=== PATIENT | female | born 1990 | race Caucasian/White ===

== ENCOUNTER 2019-06-29 06:02 | Emergency (ER) | payer SELFPAY ==
[2019-06-29 06:17] LABS: URINE APPEARANCE CLOUDY; URINE BILIRUBIN NEGATIVE (NEGATIVE); URINE BLOOD NEGATIVE (NEGATIVE); URINE COLOR ORANGE; URINE GLUCOSE (UA) NEGATIVE (NEGATIVE); URINE KETONE NEGATIVE (NEGATIVE); URINE LEUKOCYTE ESTERASE SMALL (NEGATIVE); URINE NITRITE NEGATIVE (NEGATIVE); URINE PROTEIN NEGATIVE (NEGATIVE); URINE UROBILINOGEN 0.2 E.U./dL (0.20 - 1.00)
[2019-06-29 06:38] LABS: URINE RBC NONE SEEN (NONE SEEN)
[2019-06-29] MEDS ORDERED: 0.9 % SODIUM CHLORIDE 1,000 ML BAG IV ONE (06:38)
[2019-06-29 06:39] LABS: URINE BACTERIA NONE SEEN
--- NOTE | 2019-06-29 06:39 | Emergency Department Record ---
History of Present Illness - General Source: Patient Mode of Arrival: Ambulatory Limitations: No limitations - History of Present Illness Initial Comments: pt has multiple vague complaints. she has diffuse ap, dizziness, headache on the right side of her head. she states when she stands up she feels like she is going to tip over. she has nausea. she missed work yesterday and today. she has no v/d. MD Complaint: Abdominal pain, Other Onset/Timin -: Days(s) Location: LLQ, RLQ Radiation: Suprapubic Severity: Moderate Severity scale (1-10): 5 Quality: Aching Consistency: Constant Improves With: Nothing Worsens With: Other Context: Possible food poisoning, Sick contacts Associated Symptoms: Nausea - Related Data LMP (females 10-50): 1 month ago Patient : No <Kaelyn Diehl - Last Filed: 06/29/19 06:57> <Dung Pérez - Last Filed: 06/29/19 08:57> - General Chief Complaint: Abdominal Pain Stated Complaint: HEADACHE Time Seen by Provider: 06/29/19 06:25 - Related Data Previous Rx's Medication Instructions Recorded Naproxen [Naprosyn] 500 mg PO BID #14 tablet. 06/29/19 Allergies Allergy/AdvReac Type Severity Reaction Status Date / Time No Known Drug Allergies Allergy Verified 06/29/19 06:34 Travel Screening - Travel/Exposure Within Last 30 Days Have you traveled within the last 30 days?: No - Travel Symptoms Symptom Screening: Headache <Kaelyn Diehl - Last Filed: 06/29/19 06:57> Review of Systems Reviewed: No additional complaints except as noted below Constitutional: Reports: As per HPI. Denies: Chills, Fever, Malaise, Night sweats, Weakness, Weight change Eyes: Reports: As per HPI. Denies: Eye discharge, Eye pain, Photophobia, Vision change ENT: Reports: As per HPI. Denies: Congestion, Dental pain, Ear pain, Epistaxis, Hearing loss, Throat pain Respiratory: Reports: As per HPI. Denies: Cough, Dyspnea, Hemoptysis, Stridor, Wheezes Cardiovascular: Reports: As per HPI. Denies: Arrhythmia, Chest pain, Dyspnea on exertion, Edema, Murmurs, Orthopnea, Palpitations, Paroxysmal nocturnal dyspnea, Rheumatic Fever, Syncope Endocrine: Reports: As per HPI. Denies: Fatigue, Heat or cold intolerance, Polydipsia, Polyuria Gastrointestinal: Reports: As per HPI, Abdominal pain, Constipation, Nausea. Denies: Diarrhea, Hematemesis, Hematochezia, Melena, Vomiting Genitourinary: Reports: As per HPI. Denies: Abnormal menses, Discharge, Dyspareunia, Dysuria, Frequency, Hematuria, Incontinence, Retention, Urgency Musculoskeletal: Reports: As per HPI. Denies: Arthralgia, Back pain, Gout, Joint swelling, Myalgia, Neck pain Skin: Reports: As per HPI. Denies: Bruising, Change in color, Change in hair/nails, Lesions, Pruritus, Rash Neurological: Reports: As per HPI, Headache. Denies: Abnormal gait, Confusion, Numbness, Paresthesias, Seizure, Tingling, Tremors, Vertigo, Weakness Psychiatric: Reports: As per HPI. Denies: Anxiety, Auditory hallucinations, Depression, Homicidal thoughts, Suicidal thoughts, Visual hallucinations Hematological/Lymphatic: Reports: As per HPI. Denies: Anemia, Blood Clots, Easy bleeding, Easy bruising, Swollen glands <Kaelyn Diehl - Last Filed: 06/29/19 06:57> Past Medical History - SOCIAL HISTORY Smoking Status: Never smoker Alcohol Use: None Drug Use: None - RESPIRATORY Hx Respiratory Disorders: No - CARDIOVASCULAR Hx Cardio Disorders: No - NEURO Hx Neuro Disorders: No - GI Hx GI Disorders: No - Hx Genitourinary Disorders: Yes - ENDOCRINE Hx Endocrine Disorders: No - MUSCULOSKELETAL Hx Musculoskeletal Disorders: No - PSYCH Hx Psych Problems: No - HEMATOLOGY/ONCOLOGY Hx Hematology/Oncology Disorders: No <Kaelyn Diehl - Last Filed: 06/29/19 06:57> Family Medical History Any Significant Family History?: Yes Hx Cancer: Mother *Cancer Comment: breast Hx Diabetes: Grandparents <Kaelyn Diehl - Last Filed: 06/29/19 06:57> Physical Exam - General General Appearance: Alert, Oriented x3, Cooperative, No acute distress - Head Head exam: Normal inspection - Eye Eye exam: Normal appearance, PERRL, EOMI Pupils: Normal accommodation - ENT ENT exam: Normal exam, Mucous membranes moist, Normal external ear exam, Normal orophraynx Ear exam: Normal external inspection. negative: External canal tenderness Nasal Exam: Normal inspection. negative: Discharge, Sinus tenderness Mouth exam: Normal external inspection, Tongue normal Teeth exam: Normal inspection. negative: Dental caries Throat exam: Normal inspection. negative: Tonsillar erythema, Tonsillar exudate - Neck Neck exam: Normal inspection, Full ROM. negative: Tenderness - Respiratory Respiratory exam: Normal lung sounds bilaterally. negative: Respiratory distress - Cardiovascular Cardiovascular Exam: Regular rate, Normal rhythm, Normal heart sounds - GI/Abdominal GI/Abdominal exam: Soft, Normal bowel sounds, Tenderness - Rectal Rectal exam: Deferred - exam: Deferred - Extremities Extremities exam: Normal inspection, Full ROM, Normal capillary refill. negative: Tenderness - Back Back exam: Reports: Normal inspection, Full ROM. Denies: Muscle spasm, Rash noted, Tenderness - Neurological Neurological exam: Alert, CN II-XII intact, Normal gait, Oriented X3 - Psychiatric Psychiatric exam: Normal affect, Normal mood - Skin Skin exam: Dry, Intact, Normal color, Warm <Kaelyn Diehl - Last Filed: 06/29/19 06:57> Course Vital Signs 06/29/19 06:09 Temperature 98.0 F Pulse Rate 83 Respiratory 20 Rate Blood Pressure 136/72 Pulse Ox 99 - Reevaluation(s) Reevaluation #1: 06/29/19 06:57 care being assumed by dr pérez <Kaelyn Diehl L - Last Filed: 06/29/19 06:57> Vital Signs 06/29/19 06:09 Temperature 98.0 F Pulse Rate 83 Respiratory 20 Rate Blood Pressure 136/72 Pulse Ox 99 - Reevaluation(s) Reevaluation #2: The patient is being evaluated after being picked up from Dr. Diehl due to shift change. She is here due to waking up at 3 am with a Simons that has gradually worsened. It originally was on the R side of the head and now is worse on the L side of the head. She denies any visual changes, vomiting, neck pain, fever, or balance issues. She also was dizzy at work so she decided to drive to the ER. On exam the patient was reading on her phone when I entered the room. She is awake and alert and appears very comfortable and healthy. The SIMONS is 100% reproducible with palpation of the bitemporal area. The neck is very supple. On neuro exam the patient is A and O x 3, motor and sensory are 5/5 upper and lower extremities and she has a neg Rhomberg and Drift exam. The patient's gait is normal with no balance issues. At this time she appears to have a tension SIMONS. We will treat with Toradol and will have the patient F/U with her PCP. 06/29/19 07:40 Reevaluation #3: The patient is resting comfortably at this time. She is still complaining of the bitemporal SIMONS but has no vomiting, neck pain, or fever. Again the SIMONS is 100% reproducible with palpation. The patient did have lower AP earlier but that presently is gone. On exam the abdomen is very soft and nontender. I did recommend obtaining a head CT due to the persistent new SIMONS but the patient is refusing that plan. I did explain that the risks of NOT obtaining the head CT are that the patient could have a SAH, tumor or bleeding which could lead to a stroke, disability and . The patient understands and accepts the risks. She was told to return to the ER in 12 hours if not better and sooner if worse. She presently has proper decision making capacity and accepts the risk of refusing. 06/29/19 08:24 <Dung Pérez - Last Filed: 06/29/19 08:57> Medical Decision Making - Lab Data Result diagrams: 06/29/19 06:37 06/29/19 06:37 Lab Results 06/29/19 Range/Units 06:09 Urine Color Comer H Urine Appearance Cloudy Urine pH 6.0 (5.0-8.0) Ur Specific [place] 1.025 (1.002-1.030) Urine Protein Negative (NEGATIVE) Urine Glucose (UA) Negative (NEGATIVE) Urine Ketones Negative (NEGATIVE) Urine Blood Negative (NEGATIVE) Urine Nitrite Negative (NEGATIVE) Urine Bilirubin Negative (NEGATIVE) Urine Urobilinogen 0.2 (0.20 - 1.00) E.U./dL Ur Leukocyte Esterase Small H (NEGATIVE) <Kaelyn Diehl - Last Filed: 06/29/19 06:57> - Data Complexity MDM Data: Labs Ordered and/or Reviewed - Lab Data Result diagrams: 06/29/19 06:50 06/29/19 06:50 Lab Results 06/29/19 06/29/19 06/29/19 Range/Units 06:09 06:37 06:50 WBC 10.0 (4.2-12.2) K/uL RBC 4.34 (3.80-5.40) M/uL Hgb 12.7 (11.6-16.0) gm/dl Hct 38.9 (35.0-47.0) % MCV 89.6 (81-97) fl MCH 29.3 (27-33) pg MCHC 32.6 (32-36) g/dl RDW 13.2 (11.5-14.5) % Plt Count 240 (130-400) K/uL MPV 10.6 H (7.4-10.4) fl Gran % 62.7 (47-80) % Lymphocytes % 27.5 (16-45) % Monocytes % 7.3 (0-9) % Eosinophils % 2.4 (0-6) % Basophils % 0.1 (0-6) % Absolute Neutrophils 6.27 Sodium (136-145) mmol/L Potassium (3.4-4.5) mmol/L Chloride (98-107) mmol/L Carbon Dioxide (22-29) mmol/L Anion Gap (7-16) BUN (6-20) mg/dL Creatinine (0.5-0.9) mg/dL Estimated GFR mL/min Random Glucose (74-109) mg/dL Calcium (8.6-10.0) mg/dL Total Bilirubin (0.2-1.0) mg/dL AST (10.0-35.0) U/L ALT (<33) U/L Alkaline Phosphatase (35-104) U/L Total Protein (6.6-8.7) g/dL Albumin (4.0-5.0) g/dL Globulin (1.4-4.8) gm/dL Albumin/Globulin Ratio (1.1-1.8) Urine Color Comer H Yellow Urine Appearance Cloudy Clear Urine pH 6.0 5.5 (5.0-8.0) Ur Specific [place] 1.025 >= 1.030 (1.002-1.030) Urine Protein Negative Negative (NEGATIVE) Urine Glucose (UA) Negative Negative (NEGATIVE) Urine Ketones Negative Negative (NEGATIVE) Urine Blood Negative Negative (NEGATIVE) Urine Nitrite Negative Negative (NEGATIVE) Urine Bilirubin Negative Negative (NEGATIVE) Urine Urobilinogen 0.2 0.2 (0.20 - 1.00) E.U./dL Ur Leukocyte Esterase Small H Trace H (NEGATIVE) Urine RBC None seen (NONE SEEN) Urine WBC 6 - 10 (0-2/hpf) Ur Epithelial Cells 10 - 15 (FEW) Urine Bacteria None seen Urine HCG, Qual Negative (NEGATIVE) 06/29/19 Range/Units 06:50 WBC (4.2-12.2) K/uL RBC (3.80-5.40) M/uL Hgb (11.6-16.0) gm/dl Hct (35.0-47.0) % MCV (81-97) fl MCH (27-33) pg MCHC (32-36) g/dl RDW (11.5-14.5) % Plt Count (130-400) K/uL MPV (7.4-10.4) fl Gran % (47-80) % Lymphocytes % (16-45) % Monocytes % (0-9) % Eosinophils % (0-6) % Basophils % (0-6) % Absolute Neutrophils Sodium 139 (136-145) mmol/L Potassium 4.0 (3.4-4.5) mmol/L Chloride 106 (98-107) mmol/L Carbon Dioxide 24.0 (22-29) mmol/L Anion Gap 9.0 (7-16) BUN 15 (6-20) mg/dL Creatinine 0.4 L (0.5-0.9) mg/dL Estimated GFR > 60 mL/min Random Glucose 105 (74-109) mg/dL Calcium 9.0 (8.6-10.0) mg/dL Total Bilirubin 0.20 (0.2-1.0) mg/dL AST 14 (10.0-35.0) U/L ALT 14 (<33) U/L Alkaline Phosphatase 85 (35-104) U/L Total Protein 7.1 (6.6-8.7) g/dL Albumin 4.4 (4.0-5.0) g/dL Globulin 2.7 (1.4-4.8) gm/dL Albumin/Globulin Ratio 1.6 (1.1-1.8) Urine Color Urine Appearance Urine pH (5.0-8.0) Ur Specific [place] (1.002-1.030) Urine Protein (NEGATIVE) Urine Glucose (UA) (NEGATIVE) Urine Ketones (NEGATIVE) Urine Blood (NEGATIVE) Urine Nitrite (NEGATIVE) Urine Bilirubin (NEGATIVE) Urine Urobilinogen (0.20 - 1.00) E.U./dL Ur Leukocyte Esterase (NEGATIVE) Urine RBC (NONE SEEN) Urine WBC (0-2/hpf) Ur Epithelial Cells (FEW) Urine Bacteria Urine HCG, Qual (NEGATIVE) <Dung Pérez - Last Filed: 06/29/19 08:57> Disposition <Kaelyn Diehl - Last Filed: 06/29/19 06:57> Disposition: Discharge Time of Disposition: 08:28 <Dung Pérez - Last Filed: 06/29/19 08:57> Clinical Impression: Headache Qualifiers: Headache type: tension-type Headache chronicity pattern: acute headache Intractability: not intractable Qualified Code(s): G44.209 - Tension-type headache, unspecified, not intractable Disposition: Against Medical Advice Condition: (2) Stable Instructions: Tension Headache (ED) Additional Instructions: Please rest and take the Naprosyn for pain. Take today and tomorrow off work and return to the ER in 12 hours if not better and sooner for any worsening symptoms. If improved please see a family doctor for recheck. Prescriptions: Naproxen [Naprosyn] 500 mg PO BID #14 tablet.dr Forms: Patient Portal Access Quality - Blood Pressure Screening Does Patient Have Any of the Following: No Blood Pressure Classification: Pre-Hypertensive BP Reading Systolic Measurement: 136 Diastolic Measurement: 72 Screening for High Blood Pressure: < Pre-Hypertensive BP, F/U Documented > [G8950] <Kaelyn Diehl Carmen - Last Filed: 06/29/19 06:57> - Quality Measures Quality Measures: N/A - Blood Pressure Screening View Details: Yes Does Patient Have Any of the Following: No Blood Pressure Classification: Pre-Hypertensive BP Reading Systolic Measurement: 136 Diastolic Measurement: 72 Screening for High Blood Pressure: < Pre-Hypertensive BP, F/U Documented > [G8950] Pre-Hypertensive Follow-up Interventions: Referral to alternative/primary care provider. <Dung Pérez - Last Filed: 06/29/19 08:57>
[2019-06-29] MEDS ORDERED: ACETAMINOPHEN 500 MG TABLET PO ONE (06:46)
[2019-06-29 07:00] LABS: ABSOLUTE NEUTROPHIL COUNT 6.27; BASO % 0.1 % (0-6); EOS % 2.4 % (0-6); GRAN % 62.7 % (47-80); HEMATOCRIT 38.9 % (35.0-47.0); HEMOGLOBIN 12.7 gm/dl (11.6-16.0); LYMPH % 27.5 % (16-45); MEAN CELL VOLUME 89.6 fl (81-97); MEAN CORPUSCULAR HEMOGLOBIN 29.3 pg (27-33); MEAN CORPUSCULAR HGB CONC 32.6 g/dl (32-36); MEAN PLATELET VOLUME 10.6 fl (7.4-10.4); MONO % 7.3 % (0-9); PLATELET COUNT 240 K/uL (130-400); RED BLOOD COUNT 4.34 M/uL (3.80-5.40); RED CELL DISTRIBUTION WIDTH 13.2 % (11.5-14.5)
[2019-06-29 07:06] LABS: URINE APPEARANCE CLEAR; URINE BILIRUBIN NEGATIVE (NEGATIVE); URINE BLOOD NEGATIVE (NEGATIVE); URINE COLOR YELLOW; URINE GLUCOSE (UA) NEGATIVE (NEGATIVE); URINE KETONE NEGATIVE (NEGATIVE); URINE NITRITE NEGATIVE (NEGATIVE); URINE PROTEIN NEGATIVE (NEGATIVE); URINE UROBILINOGEN 0.2 E.U./dL (0.20 - 1.00)
[2019-06-29 07:12] LABS: URINE LEUKOCYTE ESTERASE TRACE (NEGATIVE)
[2019-06-29 07:13] LABS: HCG,QUALITATIVE URINE NEGATIVE (NEGATIVE)
[2019-06-29 07:13] LABS: BLOOD UREA NITROGEN 15 mg/dL (6-20); CREATININE 0.4 mg/dL (0.5-0.9); EST GLOMERULAR FILTRATION RATE > 60 mL/min
[2019-06-29 07:14] LABS: TOTAL PROTEIN 7.1 g/dL (6.6-8.7)
[2019-06-29 07:16] LABS: GLUCOSE,RANDOM 105 mg/dL (74-109)
[2019-06-29 07:18] LABS: ALB/GLOB RATIO 1.6 (1.1-1.8); ALBUMIN 4.4 g/dL (4.0-5.0); ALT/SGPT 14 U/L (<33); AST/SGOT 14 U/L (10.0-35.0)
[2019-06-29 07:19] LABS: ALKALINE PHOSPHATASE 85 U/L (35-104)
[2019-06-29] MEDS ORDERED: KETOROLAC 30 MG/ML VIAL IVP ONE (07:38)
== END 2019-06-29 08:35 | disposition left against medical advice (07) ==
LOC: ER 06:02
DX: G44.209 Tension-type headache, unspecified, not intractable (principal); R10.84 Generalized abdominal pain; R42 Dizziness and giddiness; R11.0 Nausea
CPT/HCPCS: 99284 ×2; 96374; 96361; 85025; 80053; 81001; 81003; 81025; J1885; J7030

== ENCOUNTER 2020-01-05 20:56 | Emergency (ER) | payer MEDICAID ==
[2020-01-05] MEDS ORDERED: IBUPROFEN 600 MG TABLET PO ONE (21:14)
--- NOTE | 2020-01-05 21:14 | Emergency Department Record ---
History of Present Illness - General Chief complaint: ENT Stated complaint: SORE THROAT Time Seen by Provider: 01/05/20 21:03 Source: Patient Mode of Arrival: Ambulatory Limitations: No limitations - History of Present Illness Initial comments: The patient is here due to a one day hx of a ST, ear pain, runny nose, cough and congestion. She denies any vomiting, diarrhea, or fever but does have muscle aches. She did get a flu shot this year. MD complaint: Ear pain, Sore throat, Other Onset/Timin -: Days(s) Severity: Moderate Severity scale (1-10): 5 Quality: Aching Consistency: Constant Improves with: None Worsens with: Swallowing, Other Context- Ear: Other Associated Symptoms: Cough, Pain with swallowing, Sore throat - Related Data Previous Rx's Medication Instructions Recorded Oseltamivir Phosphate [Tamiflu] 75 mg PO BID #9 capsule 01/05/20 Allergies Allergy/AdvReac Type Severity Reaction Status Date / Time No Known Drug Allergies Allergy Verified 01/05/20 21:02 Travel/Exposure Screening - Travel/Exposure Within Last 30 Days Have you traveled within the last 30 days?: No - Additonal Travel/Exposure Details Have you been exposed to anyone with a communicable illness?: No - Travel Symptoms Symptom Screening: None Review of Systems Constitutional: Reports: Malaise. Denies: Chills, Fever Eyes: Denies: Eye discharge ENT: Reports: Congestion, Throat pain Respiratory: Reports: Cough. Denies: Dyspnea Past Medical History - SOCIAL HISTORY Smoking Status: Never smoker Alcohol Use: Occasional Drug Use: None - RESPIRATORY Hx Respiratory Disorders: No - CARDIOVASCULAR Hx Cardio Disorders: No - NEURO Hx Neuro Disorders: No - GI Hx GI Disorders: No - Hx Genitourinary Disorders: Yes - ENDOCRINE Hx Endocrine Disorders: No - MUSCULOSKELETAL Hx Musculoskeletal Disorders: No - PSYCH Hx Psych Problems: No - HEMATOLOGY/ONCOLOGY Hx Hematology/Oncology Disorders: No Family Medical History Any Significant Family History?: Yes Hx Cancer: Mother *Cancer Comment: breast Hx Diabetes: Grandparents Physical Exam - General General Appearance: Alert, Oriented x3, Cooperative, No acute distress - Head Head exam: Atraumatic, Normocephalic, Normal inspection - Eye Eye exam: Normal appearance, PERRL, EOMI. negative: Conjunctival injection - ENT Throat exam: Normal inspection. negative: Tonsillar erythema, Tonsillar exudate - Neck Neck exam: Normal inspection, Full ROM. negative: Lymphadenopathy, Meningismus, Tenderness - Respiratory Respiratory exam: Normal lung sounds bilaterally. negative: Chest wall tenderness, Respiratory distress - Cardiovascular Cardiovascular Exam: Regular rate, Normal rhythm, Normal heart sounds - GI/Abdominal GI/Abdominal exam: Soft, Normal bowel sounds. negative: Tenderness - Extremities Extremities exam: Normal inspection, Full ROM, Normal capillary refill. negative: Tenderness - Neurological Neurological exam: Alert, Normal gait. negative: Abnormal gait, Motor sensory deficit Course Vital Signs 01/05/20 21:01 Temperature 99.3 F Pulse Rate [ 105 H Pulse Ox Probe] Respiratory 24 Rate Blood Pressure 118/76 [Left Arm] Pulse Ox 96 - Reevaluation(s) Reevaluation #1: The patient is doing very well at this time. I did discuss the fact that I do believe the neg Flu test was most likely a false neg. The patient did get a flu shot this year but it is only about 50% affective. The Strep and CXR are also neg so I do believe the prudent course of action is to treat the patient for Influenza. We will give her the first dose of Tamiflu here and continue at home with a perscription. She is to return to the ER for any worsening symptoms. 01/05/20 22:12 Medical Decision Making - Data Complexity MDM Data: Labs Ordered and/or Reviewed (Flu and Strep: Neg.), X-Ray Ordered and/or Reviewed - Radiology Data Radiology results: Report reviewed (CXR: Neg. ) Disposition Disposition: Discharge Clinical Impression: URI, acute Disposition: Home, Self-Care Condition: (2) Stable Instructions: Upper Respiratory Infection (ED) Additional Instructions: Please take Tylenol and Motrin for pain and fever and continue the Tamiflu. Please see your doctor on Wednesday if not better and return to the ER for any worsening issues, pain, fever, or any trouble breathing. Prescriptions: Oseltamivir Phosphate [Tamiflu] 75 mg PO BID #9 capsule Forms: Patient Portal Access Time of Disposition: 22:28 Quality - Quality Measures Quality Measures: N/A - Blood Pressure Screening View Details: Yes Does Patient Have Any of the Following: No Blood Pressure Classification: Pre-Hypertensive BP Reading Systolic Measurement: 116 Diastolic Measurement: 84 Screening for High Blood Pressure: < Pre-Hypertensive BP, F/U Documented > [G8950] Pre-Hypertensive Follow-up Interventions: Referral to alternative/primary care provider.
[2020-01-05 21:39] LABS: INFLUENZA A NEGATIVE (NEGATIVE)
[2020-01-05 21:40] LABS: INFLUENZA B NEGATIVE (NEGATIVE)
--- NOTE | 2020-01-05 22:21 | RADIOLOGY REPORT ---
EXAMINATION: Two View Chest Radiographs EXAM DATE: 01/05/2020 9:58 PM TECHNIQUE: Frontal and lateral views INDICATION: cough COMPARISON: None ENCOUNTER: Not applicable FINDINGS: The heart, mediastinum, and pulmonary vasculature are normal. No lung consolidation or pleural effu sions are present. IMPRESSION: No acute pulmonary disease process Dictated by: Beatrice Michelle DO on 01/05/2020 10:19 PM. .
[2020-01-05] MEDS ORDERED: OSTELTAMIVIR 75 MG CAP PO ONE (22:26)
== END 2020-01-05 22:35 | disposition home or self-care (01) ==
LOC: ER 20:56
DX: J06.9 Acute upper respiratory infection, unspecified (principal); J02.9 Acute pharyngitis, unspecified; R05 Cough
CPT/HCPCS: 71046; 87400; 87880; 99283